=== PATIENT | male | born 2000 | race Caucasian/White ===

== ENCOUNTER 2020-07-31 03:17 | Emergency (ER) | payer OTHER ==
[~2020-07-31] VITALS: Ht 177.8 cm; Wt 67.1 kg
[2020-07-31 03:30] VITALS: BP_SYST 131
--- NOTE | 2020-07-31 03:30 | NUR ---
Patient to ER bed 1 to gown for evaluation. Side rails up.
--- NOTE | 2020-07-31 03:40 | NUR ---
Dr. Landaverde [facility] for pt eval
--- NOTE | 2020-07-31 03:45 | NUR ---
Pt BIB [employer] to ED seeking med clear and BA draw, VSS no s/s of acute distress Resting on gurney rails up
--- NOTE | 2020-07-31 04:05 | NUR ---
Dr. Landaverde bedside for pt update and assess med clear
[2020-07-31] MEDS ORDERED: DIPH-TET-PERTUS Vaccine 0.5 ML VIAL (ADACEL) I.M. ONE (04:15)
--- NOTE | 2020-07-31 04:17 | NUR ---
Patient given written and verbal discharge instructions and verbalizes understanding. ER MD discussed with patient the results and treatment provided. Patient in stable condition. ID arm band removed. Patient educated on pain management and to follow up with PMD. Pain Scale 0/10 Opportunity for questions provided and answered.
== END 2020-07-31 04:17 | disposition home or self-care (01) ==
LOC: SED 03:17
DX: S60.812A Abrasion of left wrist, initial encounter (principal); V49.49XA Driver injured in collision with other motor vehicles in traffic accident, initial encounter; Y93.89 Activity, other specified; Y92.89 Other specified places as the place of occurrence of the external cause; Y99.8 Other external cause status
CPT/HCPCS: 90715; 99283